=== PATIENT | male | born 1960 | race Two or more races ===

== ENCOUNTER → 2019-06-20 10:00 | Outpatient (REF) | payer BC, SELFPAY | LOC: OLS.ACW100 10:00 | PROVIDERS: Referring Provider Family Medicine; Visit Provider Family Medicine | DX: G95.11 Acute infarction of spinal cord (embolic) (nonembolic) (principal); I71.03 Dissection of thoracoabdominal aorta; I71.00 Dissection of unspecified site of aorta; G82.20 Paraplegia, unspecified; I95.81 Postprocedural hypotension | CPT/HCPCS: 87635; U0004 ==

== ENCOUNTER → 2019-08-19 04:00 | Outpatient (REF) | payer BC, SELFPAY ==
[2019-08-19 08:06] LABS: ALB/GLOB Ratio 0.4 RATIO (0.9-2.4); AST(SGOT) 23 U/L (15-37); Alanine Aminotransfer ALT/SGPT 22 U/L (16-61); Albumin, Serum 2.4 g/dL (3.2-5.0); Alkaline Phosphatase 66 U/L (45-117); Anion Gap 8 (5-15); BUN 33 mg/dL (7-18); BUN/Creat Ratio 52.3 RATIO (10-20); Calcium,Total 9.3 mg/dL (8.5-10.1); Chloride 97 mmol/L (98-107); Creatinine, Serum 0.63 mg/dL (0.70-1.30); EST Glomerular Filtration Rate 139 mL/min (>60); Est Glom Filt Rate - Afr Amer 169 mL/min (>60); Globulin 5.7 g/dL (2.2-4.2); Glucose 110 mg/dL (74-106); Potassium 4.1 mmol/L (3.5-5.1); Protein, Total 8.1 g/dL (6.4-8.2); Sodium Level 135 mmol/L (136-145)
== END ==
LOC: OLS.ACW100 04:00
PROVIDERS: Visit Provider Family Medicine
DX: G95.11 Acute infarction of spinal cord (embolic) (nonembolic) (principal); I71.03 Dissection of thoracoabdominal aorta; I71.00 Dissection of unspecified site of aorta; G82.20 Paraplegia, unspecified; M62.81 Muscle weakness (generalized)
CPT/HCPCS: 36415; 80053

== ENCOUNTER → 2019-09-03 08:30 | Outpatient (REF) | payer BC, SELFPAY | LOC: OLS.ACW100 08:30 | PROVIDERS: Referring Provider Family Medicine; Visit Provider Family Medicine | DX: G95.11 Acute infarction of spinal cord (embolic) (nonembolic) (principal); I71.03 Dissection of thoracoabdominal aorta; I71.00 Dissection of unspecified site of aorta; G82.20 Paraplegia, unspecified; M62.81 Muscle weakness (generalized) | CPT/HCPCS: 87635; U0003 ==